=== PATIENT | female | born 1965 | race African-American/Black ===

== ENCOUNTER 2017-10-06 19:07 | Emergency (ER) | payer SELFPAY ==
--- NOTE | 2017-10-06 19:24 | EDM.PDOC ---
ED HPI GENERAL MEDICAL PROBLEM - General Chief Complaint: Abdominal Pain Stated Complaint: RIGHT SIDE PAIN Time Seen by Provider: 10/06/17 19:24 - History of Present Illness INITIAL COMMENTS - FREE TEXT/NARRATIVE: 51-year-old female presents emergency room with 2 day history of worsening right lower quadrant pain. Patient had some nausea decreased appetite no significant vomiting no diarrhea no constipation no fevers or chills. The pain is just getting worse it hurts when she walks it hurts when she hits bumps in the car. Patient still has her appendix she had a gallbladder removed many years ago. She is a 7 para 6 1 miscarriage remaining 6 are healthy. Right Lower Abdomen Pain Score (Numeric/FACES): 6 - Related Data Allergies Allergy/AdvReac Type Severity Reaction Status Date / Time No Known Allergies Allergy Verified 10/06/17 19:21 Home Meds: Home Meds . [No Known Home Meds] 10/06/17 [History] Past Medical History - Past Surgical History GI Surgical History: Reports: Cholecystectomy Female Surgical History: Reports: Tubal Ligation Social & Family History - Tobacco Use Smoking Status *Q: Current Every Day Smoker Years of Tobacco use: 37 Packs/Tins Daily: 0.5 - Caffeine Use Caffeine Use: Reports: Soda - Recreational Drug Use Recreational Drug Use: No ED ROS GENERAL - Review of Systems Review Of Systems: See Below Constitutional: Reports: No Symptoms. Denies: Fever, Chills HEENT: Reports: No Symptoms Respiratory: Reports: No Symptoms Cardiovascular: Reports: No Symptoms Endocrine: Reports: No Symptoms GI/Abdominal: Reports: Abdominal Pain, Nausea. Denies: Constipation, Diarrhea, Vomiting : Reports: No Symptoms Musculoskeletal: Reports: No Symptoms Skin: Reports: No Symptoms Neurological: Reports: No Symptoms Psychiatric: Reports: No Symptoms ED EXAM, GI/ABD - Physical Exam Exam: See Below Exam Limited By: No Limitations General Appearance: Alert, No Apparent Distress Head: Atraumatic, Normocephalic Neck: Normal Inspection, Supple, Non-Tender, Full Range of Motion. No: Lymphadenopathy (L), Lymphadenopathy (R) Respiratory/Chest: No Respiratory Distress, Lungs Clear, Normal Breath Sounds Cardiovascular: Regular Rate, Rhythm, No Edema, No Murmur GI/Abdominal Exam: Normal Bowel Sounds, Soft, Non-Tender Back Exam: Normal Inspection. No: CVA Tenderness (L), CVA Tenderness (R) Extremities: Normal Inspection Neurological: Alert, Oriented, Normal Cognition Course - Vital Signs Last Recorded V/S: Last Vital Signs Temp 36.4 C 10/06/17 19:18 Pulse 87 10/06/17 19:18 Resp 16 10/06/17 19:18 BP 147/93 H 10/06/17 19:18 Pulse Ox 100 10/06/17 19:18 - Orders/Labs/Meds Orders: Active Orders 24 hr Category Date Time Status Sodium Chloride 0.9% [Normal Saline] 1,000 ml Med 10/06/17 19:45 Active IV ASDIRECTED Sodium Chloride 0.9% [Saline Flush] Med 10/06/17 20:48 Active 10 ml FLUSH ONETIME PRN Medication Orders Sodium Chloride (Normal Saline) 1,000 mls @ 250 mls/hr IV ASDIRECTED SHELBIE Last Admin: 10/06/17 20:17 Dose: 250 mls/hr Sodium Chloride (Saline Flush) 10 ml FLUSH ONETIME PRN PRN Reason: IV FLUSH Last Admin: 10/06/17 21:06 Dose: 10 ml Labs: Laboratory Tests 10/06/17 10/06/17 10/06/17 Range/Units 19:53 19:53 20:15 WBC 6.99 (3.98-10.04) K/mm3 RBC 4.24 (3.98-5.22) M/mm3 Hgb 12.6 (11.2-15.7) gm/L Hct 38.8 (34.1-44.9) % MCV 91.5 (79.4-94.8) fl MCH 29.7 (25.6-32.2) pg MCHC 32.5 (32.2-35.5) g/dl RDW Std Deviation 44.9 (36.4-46.3) fL Plt Count 337 (182-369) K/mm3 MPV 9.8 (9.4-12.3) fl Neutrophils % (Manual) 49 (40-60) % Band Neutrophils % 0 (0-10) % Lymphocytes % (Manual) 44 H (20-40) % Atypical Lymphs % 0 % Monocytes % (Manual) 6 (2-10) % Eosinophils % (Manual) 1 (0.7-5.8) % Basophils % (Manual) 0 L (0.1-1.2) Platelet Estimate Adequate RBC Morph Comment Normal Sodium 141 (136-145) mEq/L Potassium 3.8 (3.5-5.1) mEq/L Chloride 106 (98-107) mEq/L Carbon Dioxide 24 (21-32) mEq/L Anion Gap 14.8 (5-15) BUN 13 (7-18) mg/dL Creatinine 0.9 (0.55-1.02) mg/dL Est Cr Clr Drug Dosing 79.07 mL/min Estimated GFR (MDRD) > 60 (>60) mL/min BUN/Creatinine Ratio 14.4 (14-18) Glucose 97 (74-106) mg/dL Calcium 8.9 (8.5-10.1) mg/dL Total Bilirubin 0.2 (0.2-1.0) mg/dL AST 33 (15-37) U/L ALT 61 H (14-59) U/L Alkaline Phosphatase 94 (46-116) U/L Total Protein 8.0 (6.4-8.2) g/dl Albumin 3.8 (3.4-5.0) g/dl Globulin 4.2 gm/dL Albumin/Globulin Ratio 0.9 L (1-2) Urine Color Yellow (Yellow) Urine Appearance Slt cloudy H (Clear) Urine pH 6.0 (5.0-8.0) Ur Specific [place] 1.025 (1.005-1.030) Urine Protein 1+ H (Negative) Urine Glucose (UA) Negative (Negative) Urine Ketones Negative (Negative) Urine Occult Blood Negative (Negative) Urine Nitrite Negative (Negative) Urine Bilirubin Negative (Negative) Urine Urobilinogen 1.0 (0.2-1.0) Ur Leukocyte Esterase Negative (Negative) Urine RBC 0-5 (0-5) /hpf Urine WBC 0-5 (0-5) /hpf Ur Epithelial Cells 0-5 (0-5) /hpf Urine Bacteria Few (FEW) /hpf Urine Mucus Not seen (FEW) /hpf Meds: Medications Generic Name Dose Route Start Last Admin Trade Name Freq PRN Reason Stop Dose Admin Sodium Chloride 1,000 mls @ 250 mls/hr 10/06/17 19:45 10/06/17 20:17 Normal Saline IV 250 mls/hr ASDIRECTED SHELBIE Administration Sodium Chloride 10 ml 10/06/17 20:48 10/06/17 21:06 Saline Flush FLUSH 10 ml ONETIME PRN Administration IV FLUSH Discontinued Medications Generic Name Dose Route Start Last Admin Trade Name Keren PRN Reason Stop Dose Admin Diatrizoate Meglum/Diatrizoate Sod 90 ml 10/06/17 20:48 10/06/17 21:06 Gastrografin 37% PO 10/06/17 20:49 90 ml ONETIME ONE Administration Fentanyl 50 mcg 10/06/17 21:18 10/06/17 21:25 Sublimaze IVPUSH 10/06/17 21:19 50 mcg ONETIME ONE Administration Iopamidol 125 ml 10/06/17 20:48 10/06/17 21:06 Isovue-300 (61%) IVPUSH 10/06/17 20:49 125 ml ONETIME ONE Administration - Re-Assessments/Exams Free Text/Narrative Re-Assessment/Exam: 10/06/17 19:43 We will get labs anticipating getting a needed abdominal CT will reexamine and review labs prior to going to the scanner she has right lower quadrant tenderness with rebound. 10/06/17 21:37 CT evaluation is unrevealing for acute abdominal pain however she does have an 8.1 cm uterine fibroid noted but I do not believe this is causing her symptoms. Departure - Departure Time of Disposition: 21:38 Disposition: Home, Self-Care 01 Clinical Impression: Abdominal pain of unknown etiology - Discharge Information Referrals: PCP,None [Primary Care Provider] - Forms: ED Department Discharge Additional Instructions: Return the emergency room with any questions problems worsening symptoms. Follow-up in the Hospital clinic on for recheck. [id number] Clear liquid diet tonight and tomorrow morning then slowly advance as tolerated - My Orders Last 24 Hours: My Active Orders 10/06/17 19:45 Sodium Chloride 0.9% [Normal Saline] 1,000 ml IV ASDIRECTED 10/06/17 20:48 Sodium Chloride 0.9% [Saline Flush] 10 ml FLUSH ONETIME PRN - Assessment/Plan Last 24 Hours: My Active Orders 10/06/17 19:45 Sodium Chloride 0.9% [Normal Saline] 1,000 ml IV ASDIRECTED 10/06/17 20:48 Sodium Chloride 0.9% [Saline Flush] 10 ml FLUSH ONETIME PRN
[2017-10-06] MEDS ORDERED: Sodium Chloride 0.9% 1,000 ML IV SCH (19:45)
[2017-10-06] MEDS ORDERED: Diatrizoate Meglumine/Diatrizoate Sodium 37% 120 ML Bottle PO ONE (20:48)
[2017-10-06] MEDS ORDERED: Iopamidol 612 MG/ML 150 ML Bottle IVPUSH ONE (20:48)
[2017-10-06] MEDS ORDERED: Sodium Chloride 0.9% 10 ML Syringe FLUSH PRN (20:48)
[2017-10-06] MEDS ORDERED: fentaNYL 100 MCG/2 ML SDV IVPUSH ONE (21:18)
--- NOTE | 2017-10-06 21:29 | CT ---
CT abdomen and pelvis Technique: Multiple axial sections were obtained from above the dome of the diaphragm inferiorly through the pubic symphysis. Intravenous and oral contrast has been utilized. Delayed images were obtained through the bladder. Comparison: No prior abdominal imaging. Findings: Small portion of the visualized lung bases shows nothing acute. Liver shows fatty infiltration. No focal abnormality is appreciated within the liver. Surgical clips are seen from prior cholecystectomy. Spleen appears within normal limits. Adrenal glands show no nodule. Kidneys show symmetric contrast enhancement. Several small nonobstructing calculi are seen within the left kidney measuring less than 4 mm. Small cyst is noted within the lower right kidney measuring approximately 7 mm. Pancreas is within normal limits. Aorta shows slight atherosclerotic change without aneurysmal dilatation. No retroperitoneal adenopathy is seen. Fibroid identified within the right side of the uterus measuring approximately 8.1 cm in greatest dimension. Appendix is identified and appears within normal limits. No additional pelvic abnormality is seen. No free fluid or inflammatory change is seen. No bowel dilatation is seen. Delayed images shows contrast within the distal ureters and within the bladder. Bone window settings were reviewed which appear within normal limits for the patient's age with mild degenerative change seen within the spine. Impression: 1. 8.1 cm uterine fibroid. 2. Other incidental findings. Nothing acute is appreciated. Diagnostic code #3
== END 2017-10-06 21:48 | disposition home or self-care (01) ==
LOC: JD.ED 19:07
DX: R10.31 Right lower quadrant pain (principal); F17.210 Nicotine dependence, cigarettes, uncomplicated
CPT/HCPCS: 36415; 74177; 80053; 81001; 85025; 96361; 96374; 99284; J3010; J7040; J7050; Q9963; Q9967

== ENCOUNTER 2019-09-15 17:11 | Emergency (ER) | payer BC ==
--- NOTE | 2019-09-15 18:24 | EDM.PDOC ---
<Alton Yeung - Last Filed: 09/15/19 18:24> ED HPI GENERAL MEDICAL PROBLEM - General Chief Complaint: Abdominal Pain Stated Complaint: RIGHT ABDOMINAL PAIN,BACK PAIN Time Seen by Provider: 09/15/19 18:15 Right Lower Abdomen Pain Score (Numeric/FACES): 7 - Related Data Allergies Allergy/AdvReac Type Severity Reaction Status Date / Time No Known Allergies Allergy Verified 09/15/19 17:59 Home Meds: Home Meds Ondansetron [Zofran ODT] 4 mg PO Q6H PRN #20 tab.dis 09/15/19 [Rx] Past Medical History Cardiovascular History: Reports: Hypertension - Past Surgical History GI Surgical History: Reports: Cholecystectomy Female Surgical History: Reports: Tubal Ligation Social & Family History - Family History Family Medical History: Noncontributory - Tobacco Use Smoking Status *Q: Current Every Day Smoker Years of Tobacco use: 40 Packs/Tins Daily: 1 - Caffeine Use Caffeine Use: Reports: Coffee, Soda - Alcohol Use Days Per Week of Alcohol Use: 1 Number of Drinks Per Day: 3 Total Drinks Per Week: 3 - Recreational Drug Use Recreational Drug Use: No Course - Vital Signs Last Recorded V/S: Last Vital Signs Temp 97.3 F 09/15/19 17:55 Pulse 96 09/15/19 17:55 Resp 16 09/15/19 17:55 BP 136/105 H 09/15/19 17:55 Pulse Ox 96 09/15/19 17:55 - Orders/Labs/Meds Orders: Active Orders 24 hr Category Date Time Status Abdomen 2V AP Flat Upright [CR] Stat Exams 09/15/19 18:32 Taken Labs: Laboratory Tests 09/15/19 09/15/19 09/15/19 Range/Units 18:45 18:45 19:50 WBC 6.52 (3.98-10.04) K/mm3 RBC 4.22 (3.98-5.22) M/mm3 Hgb 12.3 (11.2-15.7) gm/dl Hct 38.1 (34.1-44.9) % MCV 90.3 (79.4-94.8) fl MCH 29.1 (25.6-32.2) pg MCHC 32.3 (32.2-35.5) g/dl RDW Std Deviation 43.9 (36.4-46.3) fL Plt Count 312 (182-369) K/mm3 MPV 9.6 (9.4-12.3) fl Neutrophils % (Manual) 41 (40-60) % Band Neutrophils % 0 (0-10) % Lymphocytes % (Manual) 55 H (20-40) % Atypical Lymphs % 0 % Monocytes % (Manual) 4 (2-10) % Eosinophils % (Manual) 0 L (0.7-5.8) % Basophils % (Manual) 0 L (0.1-1.2) Platelet Estimate Adequate RBC Morph Comment Normal Sodium 141 (136-145) mEq/L Potassium 3.4 L (3.5-5.1) mEq/L Chloride 105 (98-107) mEq/L Carbon Dioxide 24 (21-32) mEq/L Anion Gap 15.4 H (5-15) BUN 16 (7-18) mg/dL Creatinine 0.7 (0.55-1.02) mg/dL Est Cr Clr Drug Dosing 99.35 mL/min Estimated GFR (MDRD) > 60 (>60) mL/min BUN/Creatinine Ratio 22.9 H (14-18) Glucose 104 (74-106) mg/dL Calcium 8.7 (8.5-10.1) mg/dL Total Bilirubin 0.3 (0.2-1.0) mg/dL AST 27 (15-37) U/L ALT 55 (14-59) U/L Alkaline Phosphatase 82 (46-116) U/L Total Protein 7.6 (6.4-8.2) g/dl Albumin 3.9 (3.4-5.0) g/dl Globulin 3.7 gm/dL Albumin/Globulin Ratio 1.1 (1-2) Lipase 85 (73-393) U/L Urine Color Yellow (Yellow) Urine Appearance Slt cloudy H (Clear) Urine pH 7.0 (5.0-8.0) Ur Specific [place] 1.020 (1.005-1.030) Urine Protein Trace H (Negative) Urine Glucose (UA) Negative (Negative) Urine Ketones Negative (Negative) Urine Occult Blood Negative (Negative) Urine Nitrite Negative (Negative) Urine Bilirubin Negative (Negative) Urine Urobilinogen 1.0 (0.2-1.0) Ur Leukocyte Esterase Negative (Negative) Urine RBC 0-5 (0-5) /hpf Urine WBC 5-10 H (0-5) /hpf Ur Squamous Epith Cells 5-10 H (0-5) /hpf Urine Bacteria Moderate H (FEW) /hpf Urine Mucus Moderate H (FEW) /hpf Departure - Departure Disposition: Home, Self-Care 01 Clinical Impression: Nausea Constipation Qualifiers: Constipation type: other constipation type Qualified Code(s): K59.09 - Other constipation - Discharge Information Prescriptions: Ondansetron [Zofran ODT] 4 mg PO Q6H PRN #20 tab.dis PRN Reason: Nausea\vomiting Referrals: PCP,Unknown [Primary Care Provider] - Arlen Shaver MD [Ordering Only Provider] - Forms: ED Department Discharge Additional Instructions: Drink plenty of fluids. Take the zofran as needed for nausea and vomiting. If you do not have a bowel movement by tomorrow morning take the other half of the bottle. Please return if you are worse. Follow up with your doctor within a week. <Ryder Stack - Last Filed: 09/15/19 20:29> ED HPI GENERAL MEDICAL PROBLEM - General Source of Information: Reports: Patient History Limitations: Reports: No Limitations - History of Present Illness INITIAL COMMENTS - FREE TEXT/NARRATIVE: The patient presents with left sided abdominal pain. She also has some nausea. This started a few days ago. She still has her appendix but her gallbladder is gone. She has no fever, chills, cough, congestion, runny nosed, chest pain or shortness of breath. She has no dysuria. She has no diarrhea. She did not have a bowel movement for a couple days. She has been worked up for some pelvic problems. Onset: Gradual Duration: Day(s): Location: Reports: Abdomen Quality: Reports: Sharp Severity: Moderate Improves with: Reports: None Worsens with: Reports: None Associated Symptoms: Reports: Nausea/Vomiting. Denies: Chest Pain, Cough, Fever /Chills, Headaches, Shortness of Breath ED ROS GENERAL - Review of Systems Review Of Systems: See Below Constitutional: Reports: No Symptoms HEENT: Reports: No Symptoms Respiratory: Reports: No Symptoms Cardiovascular: Reports: No Symptoms Endocrine: Reports: No Symptoms GI/Abdominal: Reports: Abdominal Pain, Constipation, Nausea. Denies: Diarrhea, Vomiting : Reports: No Symptoms Musculoskeletal: Reports: No Symptoms ED EXAM, GI/ABD - Physical Exam Exam: See Below Exam Limited By: No Limitations General Appearance: Alert, No Apparent Distress Ears: Normal External Exam Nose: Normal Inspection Head: Atraumatic, Normocephalic Neck: Normal Inspection, Supple, Non-Tender Respiratory/Chest: No Respiratory Distress, Lungs Clear, Normal Breath Sounds Cardiovascular: Regular Rate, Rhythm, No Edema, No Murmur GI/Abdominal Exam: Soft, No Organomegaly, No Mass, Tender (Mild to moderate pain to he right mid abdomen) Course - Re-Assessments/Exams Free Text/Narrative Re-Assessment/Exam: 09/15/19 20:25 I ordered labs and an x-ray of her abdomen. Her CBC looks good. Her K was a little low at 3.4. Her anion gap was slightly elevated at 3.4. Her bun/ creatinine ratio was 22.8. Her lipase is normal. Her UA shows no UTI. Her x- ray shows moderate amount of stool. I will give her some zofran here and some magnesium citrate to have a bowel movement. Departure - Departure Time of Disposition: 20:30 Condition: Good - Discharge Information *PRESCRIPTION DRUG MONITORING PROGRAM REVIEWED*: No *COPY OF PRESCRIPTION DRUG MONITORING REPORT IN PATIENT BOOKER: No
[2019-09-15] MEDS ORDERED: Ondansetron 4 MG Tab.DIS PO ONE (20:26)
[2019-09-15] MEDS ORDERED: Magnesium Citrate Solution 296 ML Bottle PO ONE (20:26)
--- NOTE | 2019-09-16 07:10 | CR ---
Abdomen: Supine and upright views of the abdomen were obtained. Comparison: No prior abdominal x-ray, previous CT abdomen and pelvis exam of 10/06/17. Findings: Surgical clips are noted from prior cholecystectomy. Bowel gas pattern is normal. Diffuse and severe joint space narrowing is seen within the right hip. Slight scoliosis is noted within the spine. No free air is seen. Calcifications are noted within the pelvis which are felt compatible with phleboliths. Impression: 1. Severe degenerative change within the right hip. 2. Other findings which are believed to be incidental. 3. Nothing acute is appreciated on two-view abdominal x-ray. Diagnostic code #2
== END 2019-09-15 20:50 | disposition home or self-care (01) ==
LOC: JD.ED 17:11
DX: R11.2 Nausea with vomiting, unspecified (principal); K59.09 Other constipation; F17.210 Nicotine dependence, cigarettes, uncomplicated
CPT/HCPCS: 36415; 74019; 80053; 81001; 83690; 85007; 85027; 99284; A9270; 99283

== ENCOUNTER 2020-07-21 15:23 | Emergency (ER) | payer BC ==
--- NOTE | 2020-07-21 16:13 | EDM.PDOC ---
ED HPI GENERAL MEDICAL PROBLEM - General Chief Complaint: Abdominal Pain Stated Complaint: L SIDE LOWER ABD PAIN Time Seen by Provider: 07/21/20 15:42 Source of Information: Reports: Patient, RN Notes Reviewed - History of Present Illness INITIAL COMMENTS - FREE TEXT/NARRATIVE: 54 yr old female with LLQ pain that started several days ago. Pain does not radiate to back or groin. Eating does seem to make the pain worse. No voiding sx. No chest pain, cough, fever or chills. No diarrhea, vomiting or constipation. Left Lower Abdomen Pain Score (Numeric/FACES): 8 - Related Data Allergies Allergy/AdvReac Type Severity Reaction Status Date / Time No Known Allergies Allergy Verified 07/21/20 15:39 Home Meds: Home Meds Hydrocodone/Acetaminophen [[place] 5-325 Tablet] 1 each PO Q6HR PRN #14 tablet 07/21/20 [Rx] Past Medical History Cardiovascular History: Reports: Hypertension - Past Surgical History GI Surgical History: Reports: Cholecystectomy Female Surgical History: Reports: Tubal Ligation Social & Family History - Family History Family Medical History: Noncontributory - Tobacco Use Smoking Status *Q: Current Every Day Smoker Years of Tobacco use: 40 Packs/Tins Daily: 0.5 - Caffeine Use Caffeine Use: Reports: None - Recreational Drug Use Recreational Drug Use: No ED ROS GENERAL - Review of Systems Review Of Systems: See Below Constitutional: Denies: Fever, Chills, Diaphoresis HEENT: Reports: No Symptoms Respiratory: Denies: Shortness of Breath, Cough Cardiovascular: Denies: Chest Pain GI/Abdominal: Reports: Abdominal Pain, Decreased Appetite. Denies: Constipation, Diarrhea, Vomiting : Reports: No Symptoms Musculoskeletal: Denies: Back Pain Skin: Reports: No Symptoms Neurological: Reports: No Symptoms ED EXAM, GI/ABD - Physical Exam Exam: See Below General Appearance: Alert, No Apparent Distress Head: Atraumatic Neck: Supple Respiratory/Chest: No Respiratory Distress, Lungs Clear, Normal Breath Sounds Cardiovascular: Regular Rate, Rhythm GI/Abdominal Exam: Tender (L lower abd, abd otherwise nontender). No: Guarding, Rebound Back Exam: No: CVA Tenderness (L) Extremities: Normal Inspection Neurological: Alert, Oriented, No Motor/Sensory Deficits Skin Exam: Warm, Dry Course - Vital Signs Last Recorded V/S: Last Vital Signs Temp 97.3 F 07/21/20 15:37 Pulse 95 07/21/20 15:37 Resp 16 07/21/20 15:37 BP 170/104 H 07/21/20 15:37 Pulse Ox 95 07/21/20 15:37 - Orders/Labs/Meds Labs: Laboratory Tests 07/21/20 07/21/20 07/21/20 Range/Units 16:05 16:05 16:10 WBC 5.37 (3.98-10.04) K/mm3 RBC 4.41 (3.98-5.22) M/mm3 Hgb 13.3 (11.2-15.7) gm/dl Hct 40.7 (34.1-44.9) % MCV 92.3 (79.4-94.8) fl MCH 30.2 (25.6-32.2) pg MCHC 32.7 (32.2-35.5) g/dl RDW Std Deviation 45.3 (36.4-46.3) fL Plt Count 361 (182-369) K/mm3 MPV 10.1 (9.4-12.3) fl Neut % (Auto) 44.7 (34.0-71.1) % Lymph % (Auto) 45.6 (19.3-51.7) % [place] % (Auto) 6.9 (4.7-12.5) % Eos % (Auto) 2.4 (0.7-5.8) Baso % (Auto) 0.4 (0.1-1.2) % Neut # (Auto) 2.40 (1.56-6.13) K/mm3 Lymph # (Auto) 2.45 (1.18-3.74) K/mm3 [place] # (Auto) 0.37 H (0.24-0.36) K/mm3 Eos # (Auto) 0.13 (0.04-0.36) K/mm3 Baso # (Auto) 0.02 (0.01-0.08) K/mm3 C-Reactive Protein 1.2 H* (<1.0) mg/dL Urine Color Dark yellow (Yellow) Urine Appearance Clear (Clear) Urine pH 6.5 (5.0-8.0) Ur Specific [place] > or = 1.030 (1.005-1.030) Urine Protein 1+ H (Negative) Urine Glucose (UA) Negative (Negative) Urine Ketones Negative (Negative) Urine Occult Blood 1+ H (Negative) Urine Nitrite Negative (Negative) Urine Bilirubin Negative (Negative) Urine Urobilinogen 4.0 H (0.2-1.0) Ur Leukocyte Esterase Negative (Negative) Urine RBC 20-30 H (0-5) /hpf Urine WBC 5-10 H (0-5) /hpf Ur Squamous Epith Cells 5-10 H (0-5) /hpf Urine Bacteria Few (FEW) /hpf Urine Mucus Moderate H (FEW) /hpf Meds: Medications Discontinued Medications Generic Name Dose Route Start Last Admin Trade Name Freq PRN Reason Stop Dose Admin Oxycodone/Acetaminophen 1 tab 07/21/20 17:07 07/21/20 17:13 Percocet 325-5 Mg PO 07/21/20 17:08 1 tab ONETIME ONE Administration Departure - Departure Time of Disposition: 18:10 Disposition: Home, Self-Care 01 Condition: Fair Clinical Impression: Left lower quadrant abdominal pain - Discharge Information Prescriptions: Hydrocodone/Acetaminophen [[place] 5-325 Tablet] 1 each PO Q6HR PRN #14 tablet PRN Reason: Pain Instructions: Abdominal Pain, Adult Referrals: Thanh Tucker MD [Primary Care Provider] - Forms: ED Department Discharge Additional Instructions: Drink plenty of water to maintain hydration. Strain urine to watch for stone. See Dr Tucker as planned. See Dr Tucker next week if continuing to have severe discomfort. Tylenol q 6 hr for mild to moderate pain or hydrocodone if needed if severe pain. Prescription has been sent electronic to [facility] at the [employer] [facility]. Return to ED as needed. Sepsis Event Note (ED) - Evaluation Sepsis Screening Result: No Definite Risk
[2020-07-21] MEDS ORDERED: Acetaminophen/oxyCODONE 325-5 MG Tab PO ONE (17:07)
--- NOTE | 2020-07-22 19:42 | CR ---
Abdomen: Supine and upright views of the abdomen were obtained. Comparison: Prior abdominal x-ray of 09/15/19. Bowel gas pattern appears within normal limits. Severe degenerative change is noted within the right hip. Scoliosis is present within the spine. Surgical clips are seen from prior cholecystectomy. Calcifications are seen within the pelvis compatible with phleboliths. Impression: 1. Findings as noted above. 2. Nothing acute is seen. Diagnostic code #2 This report was dictated in MDT
--- NOTE | 2020-07-22 20:10 | CT ---
CT abdomen and pelvis Technique: Multiple axial sections were obtained from above the dome of the diaphragm inferiorly through the pubic symphysis. Intravenous and oral contrast was not utilized. Study has been performed as a ureteral stone protocol. Reconstructed coronal and sagittal images were obtained. Comparison: Prior CT abdomen and pelvis exam of 10/06/17. Findings: 8 mm calcification is seen which is located close to the UPJ. This could possibly cause intermittent obstruction on the left side. 2 other smaller calcifications are seen within the left kidney. No abnormal calcifications are noted within the right kidney. No ureteral dilatation or ureteral stone is seen. Visualized lung bases show nothing acute. Noncontrast appearance of the liver shows no discrete abnormality. Surgical clips are seen from previous cholecystectomy. Adrenal glands show no nodule. Pancreas shows no discrete abnormality. Aorta shows no aneurysm with mild atherosclerotic calcification. No retroperitoneal adenopathy or mesenteric abnormalities are seen. No pelvic mass or adenopathy is seen. Uterine fibroid is seen on the right side measuring 5 mm. Adjacent smaller fibroid is seen measuring 2.3 cm. No free fluid or inflammatory change is seen. Appendix is visualized and is normal in size. Bone window settings were reviewed. No acute osseous finding is appreciated. Severe degenerative change is noted within the right hip. Impression: 1. Stone close to the left UPJ on the left side. This could possibly cause intermittent obstruction. 2 nonobstructing additional stones within the left kidney are seen. No ureteral dilatation or ureteral stone is seen. 2. Other nonacute findings as noted above. Diagnostic code #3 This report was dictated in MDT I agree with preliminary report from [facility], finalized on 07/21/20, 6:47 PM Central Daylight Time
== END 2020-07-21 18:21 | disposition home or self-care (01) ==
LOC: JD.ED 15:23
DX: R10.32 Left lower quadrant pain (principal); I10 Essential (primary) hypertension; F17.210 Nicotine dependence, cigarettes, uncomplicated
CPT/HCPCS: 36415; 74019; 74176; 81001; 85025; 86140; 99284; A9270; 99283

== ENCOUNTER 2022-04-03 14:02 | Emergency (ER) | payer BC, MEDICAID ==
[2022-04-03] MEDS ORDERED: Ondansetron 4 MG/2 ML SDV IVPUSH ONE (14:39)
[2022-04-03] MEDS ORDERED: Morphine 4 MG/ML Syringe IVPUSH ONE (14:40)
[2022-04-03] MEDS ORDERED: Lactated Ringers 1,000 ML IV SCH (14:45)
[2022-04-03] MEDS ORDERED: Morphine 2 MG/ML SYRINGE IVPUSH ONE (16:36)
[2022-04-03] MEDS ORDERED: Sodium Chloride 0.9% 10 ML Syringe FLUSH ONE (16:50)
[2022-04-03] MEDS ORDERED: Iopamidol 612 MG/ML 100 ML Bottle IVPUSH ONE (16:50)
[2022-04-03] MEDS ORDERED: fentaNYL 100 MCG/2 ML SDV IVPUSH ONE (18:02)
[2022-04-03] MEDS ORDERED: Acetaminophen/HYDROcodone 325-5 MG Tab PO ONE (18:05)
[2022-04-03] MEDS ORDERED: Tamsulosin 0.4 MG Cap.ER PO ONE (19:09)
[2022-04-03] MEDS ORDERED: cefTRIAXone 2 GM in Sodium Chloride 0.9% 100 ML IV ONE (19:19)
[2022-04-03] MEDS ORDERED: Ondansetron 4 MG Tab.DIS PO ONE (20:47)
== END 2022-04-03 20:30 | disposition home or self-care (01) ==
LOC: JD.ED 14:02
DX: N20.0 Calculus of kidney (principal); N39.0 Urinary tract infection, site not specified; I10 Essential (primary) hypertension; F17.210 Nicotine dependence, cigarettes, uncomplicated; Z90.49 Acquired absence of other specified parts of digestive tract; Z79.899 Other long term (current) drug therapy
CPT/HCPCS: 36415; 74177; 80053; 81001; 83690; 85025; 87086; 96361; 96365; 96375; 96376; 99284-25; A9270-GY; J0696; J2270; J2405; J3010; J3490; J7120; Q9967

== ENCOUNTER 2022-04-08 10:42 | Emergency (ER) | payer BC, MEDICAID ==
[2022-04-08] MEDS ORDERED: HYDROmorphone 1 MG/ML Syringe IVPUSH STA (11:51)
[2022-04-08] MEDS ORDERED: Tamsulosin 0.4 MG Cap.ER PO STA (11:51)
[2022-04-08] MEDS ORDERED: Sodium Chloride 0.9% 10 ML Syringe FLUSH PRN (11:52)
[2022-04-08] MEDS ORDERED: Sodium Chloride 0.9% 1,000 ML IV SCH (12:00)
[2022-04-08] MEDS ORDERED: Promethazine 25 MG in Sodium Chloride 0.9% 50 ML IV ONE (13:04)
[2022-04-08] MEDS ORDERED: HYDROmorphone 0.5 MG/0.5 ML Syringe IVPUSH ONE (14:39)
== END 2022-04-08 15:30 | disposition home or self-care (01) ==
LOC: JD.ED 10:42
DX: N20.0 Calculus of kidney (principal); R11.2 Nausea with vomiting, unspecified; I10 Essential (primary) hypertension; F17.210 Nicotine dependence, cigarettes, uncomplicated; Z90.49 Acquired absence of other specified parts of digestive tract; Z79.899 Other long term (current) drug therapy
CPT/HCPCS: 36415; 80053; 81001; 85025; 86140; 87086; 96361; 96365; 96375; 96376; 99284; A9270; J1170; J2550; J3490; J7030; 99283

== ENCOUNTER 2022-05-15 14:19 | Emergency (ER) | payer MEDICAID ==
[2022-05-15] MEDS ORDERED: HYDROmorphone 1 MG/ML Syringe IVPUSH STA (17:10)
[2022-05-15] MEDS ORDERED: Tamsulosin 0.4 MG Cap.ER PO STA (17:10)
[2022-05-15] MEDS ORDERED: Ondansetron 4 MG/2 ML SDV IVPUSH ONE ×2 (17:10→20:50)
[2022-05-15] MEDS ORDERED: Sodium Chloride 0.9% 1,000 ML IV SCH (17:15)
[2022-05-15] MEDS ORDERED: HYDROmorphone 0.5 MG/0.5 ML Syringe IVPUSH ONE (20:50)
[2022-05-15] MEDS ORDERED: cefTRIAXone 2 GM in Sodium Chloride 0.9% 100 ML IV ONE (21:15)
== END 2022-05-15 22:20 | disposition home or self-care (01) ==
LOC: JD.ED 14:19
DX: N20.0 Calculus of kidney (principal); N39.0 Urinary tract infection, site not specified; I10 Essential (primary) hypertension; F17.210 Nicotine dependence, cigarettes, uncomplicated; Z90.49 Acquired absence of other specified parts of digestive tract; Z79.899 Other long term (current) drug therapy
CPT/HCPCS: 36415; 74176; 80053; 81001; 85025; 87086; 96361; 96365; 96375; 96376; 99284; A9270; J0696; J1170; J2405; J7030

== ENCOUNTER 2022-05-29 13:31 | Day surgery (SDC) | payer MEDICAID ==
[2022-05-29] MEDS: Polymyxin B/Trimethoprim 10 ML Bottle EYERT SCH ×3 (12:56→14:48)
[2022-05-29] MEDS: Brimonidine 0.2% Ophth Soln 5 ML Bottle EYERT SCH ×4 (13:01→14:48)
[2022-05-29] MEDS: Phenylephrine 2.5% Ophth Soln 2 ML Bot EYERT SCH ×5 (13:06→14:16)
[2022-05-29] MEDS: Tropicamide 1% Ophth Soln 15 ML Bottle EYERT SCH ×4 (13:11→13:41)
[~2022-05-29 13:31] MED LIST: Cefuroxime 10 MG/ML SYRINGE EYERT SCH; Lidocaine 1% PF 2 ML SDV INJECT SCH; Pilocarpine 4% Ophth Soln 15 ML Bot EYERT SCH
[2022-05-29] MEDS: Tetracaine HCl/PF 0.5% 4 ML Bottle EYEBOTH SCH ×4 (14:05→14:23)
== END 2022-05-29 14:56 | disposition home or self-care (01) ==
LOC: JD.SDS 13:31
PROVIDERS: ATTEND Ophthalmology
DX: H25.813 Combined forms of age-related cataract, bilateral (principal); I10 Essential (primary) hypertension; F17.200 Nicotine dependence, unspecified, uncomplicated; F41.9 Anxiety disorder, unspecified; F32.A Depression, unspecified; E66.9 Obesity, unspecified; M19.90 Unspecified osteoarthritis, unspecified site; Z68.32 Body mass index [BMI] 32.0-32.9, adult; Z79.899 Other long term (current) drug therapy; Z90.49 Acquired absence of other specified parts of digestive tract
CPT/HCPCS: 66982; J0697; C1780

== ENCOUNTER 2022-06-26 08:22 | Day surgery (SDC) | payer MEDICAID ==
[~2022-06-26 08:22] MED LIST changes: +Cefuroxime 10 MG/ML SYRINGE EYELF SCH; -Cefuroxime 10 MG/ML SYRINGE EYERT SCH; +Pilocarpine 4% Ophth Soln 15 ML Bot EYELF SCH; -Pilocarpine 4% Ophth Soln 15 ML Bot EYERT SCH
[2022-06-26] MEDS: Polymyxin B/Trimethoprim 10 ML Bottle EYELF SCH ×3 (08:24→09:59)
[2022-06-26] MEDS: Brimonidine 0.2% Ophth Soln 5 ML Bottle EYELF SCH ×3 (08:30→10:18)
[2022-06-26] MEDS: Phenylephrine 2.5% Ophth Soln 2 ML Bot EYELF SCH ×5 (08:35→09:36)
[2022-06-26] MEDS: Tropicamide 1% Ophth Soln 15 ML Bottle EYELF SCH ×4 (08:42→09:20)
[2022-06-26] MEDS: Tetracaine HCl/PF 0.5% 4 ML Bottle EYEBOTH SCH ×4 (09:28→09:37)
== END 2022-06-26 10:08 | disposition home or self-care (01) ==
LOC: JD.SDS 08:22
PROVIDERS: ATTEND Ophthalmology
DX: H25.812 Combined forms of age-related cataract, left eye (principal); H40.1132 Primary open-angle glaucoma, bilateral, moderate stage; H31.013 Macula scars of posterior pole (postinflammatory) (post-traumatic), bilateral; H21.81 Floppy iris syndrome; I10 Essential (primary) hypertension; F17.200 Nicotine dependence, unspecified, uncomplicated; F32.A Depression, unspecified; F41.9 Anxiety disorder, unspecified; E66.9 Obesity, unspecified; Z96.1 Presence of intraocular lens; Z79.82 Long term (current) use of aspirin; Z79.899 Other long term (current) drug therapy; Z90.49 Acquired absence of other specified parts of digestive tract; Z98.890 Other specified postprocedural states
CPT/HCPCS: 66982; J0697; C1780

== ENCOUNTER 2022-10-01 13:08 | Day surgery (SDC) | payer MEDICAID ==
[~2022-10-01 13:08] MED LIST changes: -Cefuroxime 10 MG/ML SYRINGE EYELF SCH; +Lactated Ringers 1,000 ML IV SCH; -Lidocaine 1% PF 2 ML SDV INJECT SCH; +Lidocaine 1%/Sod Bicarbonate in NS 8.4% 1 ML Syringe IDERM PRN; -Pilocarpine 4% Ophth Soln 15 ML Bot EYELF SCH; +Sodium Chloride 0.9% 10 ML Syringe FLUSH PRN; +Sodium Chloride 0.9% 10 ML Syringe FLUSH SCH
[2022-10-01] MEDS ORDERED: Ondansetron 4 MG/2 ML SDV IVPUSH PRN (13:19)
[2022-10-01] MEDS ORDERED: Propofol 200 MG/20 ML SDV ONE ×3 (13:26→15:57)
[2022-10-01] MEDS ORDERED: fentaNYL 100 MCG/2 ML SDV ONE (13:31)
[2022-10-01] MEDS ORDERED: Midazolam 1 MG/ML 2 ML SDV ONE (13:32)
[2022-10-01] MEDS ORDERED: Bupivacaine 0.5%/EPINEPHrine 1:200,000 50 ML MDV ONE (13:34)
[2022-10-01] MEDS ORDERED: Phenylephrine HCl In 0.9% NaCl 1 MG/10 ML Vial ONE (15:39)
== END 2022-10-01 17:04 | disposition home or self-care (01) ==
LOC: JD.SDS 13:08
PROVIDERS: ATTEND Surgery
DX: D17.0 Benign lipomatous neoplasm of skin and subcutaneous tissue of head, face and neck (principal); D17.21 Benign lipomatous neoplasm of skin and subcutaneous tissue of right arm; I10 Essential (primary) hypertension; G47.00 Insomnia, unspecified; F17.210 Nicotine dependence, cigarettes, uncomplicated; Z98.890 Other specified postprocedural states; Z90.49 Acquired absence of other specified parts of digestive tract; Z68.33 Body mass index [BMI] 33.0-33.9, adult; Z79.899 Other long term (current) drug therapy
CPT/HCPCS: 21552; 23071; J2250; J2704; J3010; J3490; J7120